=== PATIENT | male | born 1995 | race Hispanic/Latino ===

== ENCOUNTER 2022-11-12 15:16 | Emergency (ER) | payer BC, OTHER ==
[2022-11-12] MEDS ORDERED: Ibuprofen 800 MG TAB ONE (16:35)
== END 2022-11-12 18:30 | disposition home or self-care (01) ==
LOC: ERS 15:16
DX: S06.0X0A Concussion without loss of consciousness, initial encounter (principal); S02.2XXA Fracture of nasal bones, initial encounter for closed fracture; Y04.0XXA Assault by unarmed brawl or fight, initial encounter
CPT/HCPCS: 70450; 70486